=== PATIENT | female | born 1995 | race Caucasian/White ===

== ENCOUNTER 2018-04-14 23:20 | Emergency (ER) | payer BC, OTHER ==
[~2018-04-14] VITALS: Ht 165.1 cm; Wt 55.0 kg
[~2018-04-14 23:20] MED LIST: DOCU-131 PO; IBUP-1222 PO; OXYC-302 PO; PREN1TAB60 PO
[2018-04-14 23:28] VITALS: BP 129/87
== END 2018-04-15 02:11 | disposition home or self-care (01) ==
LOC: ED 04-15 02:05
DX: T40.601A Poisoning by unspecified narcotics, accidental (unintentional), initial encounter (principal); F17.200 Nicotine dependence, unspecified, uncomplicated; Y92.9 Unspecified place or not applicable
CPT/HCPCS: 99283